=== PATIENT | female | born 2000 | race Caucasian/White ===

== ENCOUNTER → 2018-01-11 | Outpatient (CLI) | payer OTHER ==
[2018-01-11 14:15] LABS: BASO % 0.4 % (0.0-1.0); EOS % 0.4 % (0.0-3.0); HEMATOCRIT 35.4 % (36.0-47.0); HEMOGLOBIN 11.8 g/dl (12.0-15.5); IMMATURE GRANULOCYTE % 0.4 % (0-3.0); LYMPH # 2.2 10^3/uL (1.5-6.5); LYMPH % 20.5 % (24.0-44.0); MEAN CORPUSCULAR HGB CONC 33.3 g/dl (32.0-36.5); MONO # 0.7 10^3/uL (0.0-0.8); MONO % 6.2 % (0.0-5.0); NEUTROPHILS # 7.9 10^3/uL (1.8-7.7); NEUTROPHILS % 72.1 % (36.0-66.0); PLATELET COUNT, AUTOMATED 314 10^3/uL (150-450); RED BLOOD COUNT 4.07 10^6/uL (4.00-5.40); RED CELL DISTRIBUTION WIDTH 12.7 % (11.5-14.5); WHITE BLOOD COUNT 10.9 10^3/uL (4.0-10.0)
[2018-01-11 14:27] LABS: FREE T4 1.12 NG/DL (0.78-1.33); THYROID STIMULATING HORMONE 0.902 uIU/ML (0.463-3.98)
[2018-01-11 14:39] LABS: RUBELLA IgG QUALITATIVE IMMUNE (IMMUNE)
[2018-01-11 14:40] LABS: HBsAg Prenatal NEGATIVE (NEGATIVE)
[2018-01-11 15:08] LABS: HEPATITIS C VIRUS ABY INDEX 0.1 INDEX (<0.8)
[2018-01-11 15:08] LABS: HIV 1&2 SCREEN CENTAUR NEGATIVE (NEGATIVE)
[2018-01-12 14:18] LABS: CHLAMYDIA DNA AMPLIFICATION NEGATIVE (NEGATIVE); GC DNA AMPLIFICATION NEGATIVE (NEGATIVE)
== END ==
LOC: M SMT 11:25
DX: Z34.01 Encounter for supervision of normal first pregnancy, first trimester (principal); Z3A.09 9 weeks gestation of pregnancy
CPT/HCPCS: 84443

== ENCOUNTER → 2018-03-16 | Outpatient (CLI) | payer OTHER ==
--- NOTE | 2018-03-16 17:27 | REP ---
Obstetric ultrasound for anatomy: There are no prior studies. There is a single intrauterine gestation. Fetus is in a breech presentation. There is movement and cardiac activity. heart rate is 144 beats per minute. The placenta is anterior and extends into the lower uterine segment, however there is no placenta previa and the placenta is grade zero. Subjectively the amniotic fluid volume is normal. The cervix measures 2.8 cm length. Gestational age by the ultrasound today is 18 weeks 4 days. The gestational age by LMP is 18 weeks 6 days with an VERO of 10/16/2017. weight is 234 grams (0 pounds, 8 ounces). This is the 26 percentile for 18 weeks 6 days. The following anatomic structures are identified and are unremarkable: Cranium Choroid plexus Cavum septum pellucidum. Face. Lungs Four-chamber heart. Right and left cardiac ventricular outflow tracts. Diaphragm. Stomach. Cord insertion. Three-vessel cord. Kidneys Bladder Upper lower extremities. The following structures are not adequately identified because of position: facial profile. Upper lip. Spine A followup study dedicated to these structures might be considered. Otherwise, there are no anomalies. Electronically Signed by Neal Stearns MD 03/16/2018 05:19 P
== END ==
LOC: M LRY 13:38
PROVIDERS: ATTEND Advanced Practice Midwife
DX: Z34.82 Encounter for supervision of other normal pregnancy, second trimester (principal)

== ENCOUNTER → 2018-03-28 | Outpatient (CLI) | payer OTHER | LOC: M SMT 14:40 | PROVIDERS: ATTEND Obstetrics & Gynecology | DX: Z36.89 Encounter for other specified antenatal screening (principal) ==

== ENCOUNTER → 2018-04-06 | Outpatient (CLI) | payer OTHER ==
--- NOTE | 2018-04-06 14:51 | REP ---
GALLBLADDER ULTRASOUND: 04/06/2018 CLINICAL HISTORY: Low back pain. Second trimester . No comparison study. FINDINGS: Sonographic evaluation of the right upper quadrant shows liver homogeneous echotexture without focal hepatic mass, intrahepatic biliary dilatation, nor perihepatic ascites. Gallbladder is well filled but without stone, sludge, or pericholecystic fluid. Wall thickness is 3 mm, upper range of normal. There is a small echogenic non shadowing focus on the posterior wall of the gallbladder which did not move. This could be a polyp or adherent stone. The common duct is 4 mm and without a filling defect. Pancreas shows no ductal dilatation or other abnormality. No peripancreatic fluid. The right kidney is 11.1 x 4.6 x 6.9 cm. There is no stone or hydronephrosis. An extrarenal pelvis is noted. IMPRESSION: 1. Appears to be a 4 mm polyp or adherent stone on the posterior wall of the gallbladder. Gallbladder wall thickness borderline, but no pericholecystic fluid and no sonographic Chandler sign. 2. Common duct 4 mm and unremarkable. 3. The liver, pancreas, and right kidney without acute finding. Electronically Signed by Denilson Shelby MD 04/06/2018 07:32 P
== END ==
LOC: M RAD 13:26
PROVIDERS: ATTEND Obstetrics & Gynecology
DX: M54.5 Low back pain (principal)

== ENCOUNTER → 2018-04-24 | Outpatient (CLI) | payer OTHER ==
--- NOTE | 2018-04-25 03:32 | REP ---
Clinical: Anatomical evaluation. Comparison: 03/16/2018 . Findings: Examination demonstrates a single live intrauterine in oblique (head towards maternal left) presentation. motion is identified by technologist. Placenta is noted anterior and grade grade 1 without evidence for placenta previa or abruption. Amniotic fluid volume is normal. Cervix measures 3.3 cm in length and appears closed. No evidence for nuchal cord. Gestational age by LMP 24 weeks 3 days with VERO 08/11/2018 . Gestational age by current measurements 23 weeks 6 days with VERO 08/14/2018 . FHR equals 139 beats per minute. Estimated weight 652 grams ( 33rd percentile). Anatomical assessment demonstrates normal structures including cranium, choroid plexus, cerebellum/posterior fossa, nose and lips, lungs, four-chamber heart/ventricular outflow tracts, diaphragm, stomach, cord insertion/three-vessel cord, kidneys/bladder, spine, and extremities. Impression: 1. Single live intrauterine in transverse lie with appropriate interval growth. 2. Limited evaluation of the facial profile. Remainder of the anatomical assessment is complete and normal. Electronically Signed by Ronn Brooks MD 04/25/2018 03:23 A
== END ==
LOC: M LRY 08:26
PROVIDERS: ATTEND Advanced Practice Midwife
DX: O32.2XX0 Maternal care for transverse and oblique lie, not applicable or unspecified (principal); Z36.87 Encounter for antenatal screening for uncertain dates; Z3A.24 24 weeks gestation of pregnancy

== ENCOUNTER → 2018-06-12 | Outpatient (CLI) | payer OTHER ==
[2018-06-12 18:30] LABS: HEMATOCRIT 32.2 % (36.0-47.0); HEMOGLOBIN 10.4 g/dl (12.0-15.5); MEAN CORPUSCULAR HEMOGLOBIN 28.2 pg (27.0-33.0); MEAN CORPUSCULAR HGB CONC 32.3 g/dl (32.0-36.5); MEAN CORPUSCULAR VOLUME 87.3 fl (80.0-96.0); PLATELET COUNT, AUTOMATED 368 10^3/uL (150-450); RED BLOOD COUNT 3.69 10^6/uL (4.00-5.40); WHITE BLOOD COUNT 14.2 10^3/uL (4.0-10.0)
== END ==
LOC: M SMT 15:42
PROVIDERS: ATTEND Advanced Practice Midwife
DX: O44.42 Low lying placenta NOS or without hemorrhage, second trimester (principal); Z3A.00 Weeks of gestation of pregnancy not specified
CPT/HCPCS: 36415; 85027; 86850; 86900; 86901; J2790

== ENCOUNTER 2018-07-24 10:33 | Outpatient (CLI) | payer OTHER ==
[~2018-07-24] VITALS: Ht 165.1 cm; Wt 109.1 kg
[2018-07-24 10:55] VITALS: BP 144/68
[2018-07-24] MEDS ORDERED: TUMS500C PO (10:56)
[2018-07-24] MEDS ORDERED: PRENTAB9 PO (10:56)
[2018-07-24] MEDS ORDERED: TERBUTALINE SULFATE 1 MG/ML VIAL (J3105) As Ordered ONE (11:33)
[2018-07-24] MEDS ORDERED: TERBUTALINE SULFATE 1 MG/ML VIAL (J3105) SC ONE (11:45)
[2018-07-24] MEDS ORDERED: RHOGAM 300 MCG (1500 IU) INJ (J2790) IM SCH (12:30)
--- NOTE | 2018-07-24 12:30 | IPNPDOC ---
Text Note Date of Service The patient was seen on 07/24/18. NOTE ECV note Eusebio is a 18yo with SIUP at 37wk who presented for scheduled ECV for persistent breech presentation at term. course complicated by transfer- in at 35 weeks, O negative MBT (received rhogam 06/13), obesity (starting BMI 32), anemia, and A1GDM. She feels good movement, no LOF, no vaginal bleeding, no regular ctx. Vitals: 1 mild range bp followed by normotensive bp General: WDWN, resting comfortably in bed Abdomen: soft, gravid, NTTP TAUS: SIUP with martín breech presentation - head in maternal LUQ, visually adequate fluid NST: reactive, +accels, -decels, mod monique [place]: rare ctx ECV Note: Dr. Huertas and I performed TAUS to eval position. Patient was given 0.25mg SQ terbutaline for uterine relaxation. Copious gel placed over the abdomen. Using manual pressure, we attempted to manipulate the breech in a forward roll fashion, but there was no forward movement. We then attempted backward roll, but also had no movement. We confirmed with ultrasound that the head had not moved at all. We tried one more attempt in a forward roll, but again no movement whatsoever. We discussed with the patient at that time the unlikelihood of success and the procedure was then terminated. Assessment: unsuccessful ECV, persistent breech presentation Plan: -patient ok to have regular lunch -CEFM for 1 hour -rhogam prior to discharge -strict return precautions -patient will be scheduled for PLTCS at 39wk and will be called with pre-op appt MD IGNACIA Solares Fishbone, I+O Flex BETH I+O Vital Signs Date Time Temp Pulse Resp B/P (MAP) Pulse Ox O2 Delivery O2 Flow Rate FiO2 07/24/18 10:55 99.1 116 18 144/68 (93) Anastasia Santana MD Jul 24, 2018 12:30
[2018-07-31] MEDS ORDERED: QC A650T3 PO (14:33)
== END 2018-07-24 13:05 | disposition home or self-care (01) ==
LOC: M LDO 10:33
PROVIDERS: ATTEND Obstetrics & Gynecology
DX: O32.1XX0 Maternal care for breech presentation, not applicable or unspecified (principal); O36.1930 Maternal care for other isoimmunization, third trimester, not applicable or unspecified; Z3A.37 37 weeks gestation of pregnancy
CPT/HCPCS: 59025; 59412; 76815; 86850; 86870; 86900; 86901; 96372; G0463; J2790; J3105

== ENCOUNTER 2018-08-04 09:22 | Inpatient (IN) | payer OTHER ==
[~2018-08-04] VITALS: Ht 165.1 cm; Wt 102.4 kg
[2018-08-04] VITALS (8 sets, daily range): BP systolic 114–139; BP diastolic 55–82
[~2018-08-04 09:22] MED LIST: PRENTAB9 PO; QC A650T3 PO; TUMS500C PO
[2018-08-04] MEDS ORDERED: LACTATED RINGER'S 1000 ML IV STA (09:42)
[2018-08-04] MEDS ORDERED: LR 1,000 ML IV SCH (09:42)
[2018-08-04] MEDS ORDERED: BICITRA 30ML SOLN UDC PO ONE (10:00)
[2018-08-04 10:21] LABS: HEMATOCRIT 31.5 % (36.0-47.0); HEMOGLOBIN 10.6 g/dl (12.0-15.5); MEAN CORPUSCULAR HGB CONC 33.7 g/dl (32.0-36.5); MEAN CORPUSCULAR VOLUME 86.1 fl (80.0-96.0); PLATELET COUNT, AUTOMATED 285 10^3/uL (150-450); RED BLOOD COUNT 3.66 10^6/uL (4.00-5.40)
[2018-08-04] MEDS ORDERED: OXYTOCIN INJ 10 UNITS/ML VIAL (J2590) As Ordered ONE (10:59)
[2018-08-04] MEDS ORDERED: MORPHINE PRES-FREE INJ 10 MG/10 ML VIAL (J2274) As Ordered ONE (11:00)
--- NOTE | 2018-08-04 11:20 | IPNPDOC ---
Text Note Date of Service The patient was seen on 08/04/18. NOTE Update to H&P Please see scanned admission H&P for complete H&P, but in brief Eusebio is a 18yo with SIUP at 39w0d presenting for gross rupture of membranes with +nitrazine with known breech presentation. She had planned PLTCS scheduled on 08/07 and pre-op visit was already performed where she was counseled/consented for surgery. Consents on file. She had failed ECV at 37wk. She is not feeling painful ctx, so this represents PROM. TAUS done on presentation confirms still breech with head in maternal LUQ. She has normal vital signs. Normal exam. Reactive NST. course complicated by well controlled A1GDM and obesity (starting BMI 32). Will proceed to OR after labs drawn and IV started Anesthesia and nursing team aware 2g IV anceph for prophylaxis Bicitra Last ate at midnight last night Dr. Anastasia Santana MD VS,Flex, I+O VS, Flex, I+O Laboratory Tests 08/04/18 09:54 Red Blood Count 3.66 L, Mean Corpuscular Volume 86.1, Mean Corpuscular Hemoglobin 29.0, Mean Corpuscular Hemoglobin Concent 33.7, Red Cell Distribution Width 15.6 H Anastasia Santana MD Aug 04, 2018 11:01
[2018-08-04] MEDS ORDERED: NALBUPHINE HCL 10 MG/ML AMP (J2300) IV PRN (11:21)
[2018-08-04] MEDS ORDERED: NALOXONE INJ 0.4 MG/1 ML VIAL (J2310) IV PRN ×2 (11:21)
[2018-08-04] MEDS ORDERED: ONDANSETRON 4MG/2ML VIAL (J2405) IV PRN ×3 (11:21→13:45)
[2018-08-04] MEDS ORDERED: diphenhydrAMINE INJ 50MG/ML VIAL (J1200) IV PRN (11:21)
[2018-08-04] MEDS ORDERED: METOCLOPRAMIDE INJ 10MG/2ML VIAL (J2765) IV PRN (11:21)
[2018-08-04] MEDS ORDERED: ONDANSETRON 4MG/2ML VIAL (J2405) As Ordered ONE (11:33)
[2018-08-04] MEDS ORDERED: dexameTHASONE 4 MG/ML 1ML VIAL (J1100) As Ordered ONE (11:33)
[2018-08-04] MEDS ORDERED: KETOROLAC 60 MG/2 ML VIAL (J1885) As Ordered ONE (11:33)
[2018-08-04] MEDS ORDERED: PERCOCET 5MG/325MG TAB PO PRN (13:15)
[2018-08-04] MEDS ORDERED: RHOGAM 300 MCG (1500 IU) INJ (J2790) IM SCH (13:15)
[2018-08-04] MEDS ORDERED: MEASLES,MUMPS,RUBELLA VACCINE INJ (MMR-II) (90707) SC SCH (13:15)
[2018-08-04] MEDS ORDERED: METHYLERGONOVINE MALEATE 0.2 MG/ML VIAL (J2210) IM ONE (13:30)
[2018-08-04] MEDS ORDERED: NORCO, ANEXSIA 5/325MG TABLET (HYDROcodone/ACETAMINOPHEN) PO PRN (13:45)
[2018-08-04] MEDS ORDERED: fentaNYL 100 MCG/2 ML INJECTION (J3010) IV PRN (13:45)
[2018-08-04] MEDS: LR 1,000 ML IV SCH (17:47)
[2018-08-04] MEDS: KETOROLAC 30 MG/ML VIAL (J1885) IV SCH (18:02)
[2018-08-04] MEDS: DOCUSATE SODIUM 100 MG CAP PO SCH (21:00)
[2018-08-05] MEDS: KETOROLAC 30 MG/ML VIAL (J1885) IV SCH ×2 (00:31→05:55)
[2018-08-05] MEDS: LR 1,000 ML IV SCH ×3 (01:12→14:57)
[2018-08-05 02:00] VITALS: BP 113/52
[2018-08-05] MEDS ORDERED: LR 800 ML IV ONE (05:15)
[2018-08-05 06:00] VITALS: BP 115/53
[2018-08-05 07:16] LABS: HEMATOCRIT 21.5 % (36.0-47.0); MEAN CORPUSCULAR HEMOGLOBIN 28.6 pg (27.0-33.0); MEAN CORPUSCULAR HGB CONC 33.5 g/dl (32.0-36.5); MEAN CORPUSCULAR VOLUME 85.3 fl (80.0-96.0); PLATELET COUNT, AUTOMATED 212 10^3/uL (150-450); RED BLOOD COUNT 2.52 10^6/uL (4.00-5.40); WHITE BLOOD COUNT 12.3 10^3/uL (4.0-10.0)
[2018-08-05 07:35] LABS: HEMOGLOBIN 7.2 g/dl (12.0-15.5)
--- NOTE | 2018-08-05 08:49 | IPN ---
DATE: 08/05/2018 This lady is a 18-year-old 1 now para 1 who was admitted at 39 weeks of gestation with spontaneous rupture of membranes, martín breech presentation, in active labor. She was a failed external cephalic version, booked for section on Tuesday. She had a primary section, live male 8 pounds 8 ounces, 3850 grams, scores of nine and nine at 1 and 5 minutes respectively. The rest of the examination is unremarkable. Normocephalic, atraumatic. Neck full range of motion. Pupils equally reactive to light. Distal pulses symmetric. No evidence of deep vein thrombosis (DVT), pulmonary embolism (PE) or superficial phlebitis. Chest is clear bilaterally to the bases. No wheezes or rhonchi. Abdomen soft, uterus 2 below. Lochia is moderate. Four quadrant bowel sounds are noted. Blood pressure is 115/53, respirations 17, pulse 87, temperature is 98.4. Her admitting hemoglobin was 10.6, hematocrit 31.5 and platelets were 285. In summary, we have a 39+ week gestation, martín breech for primary section, live male infant. PLAN: Her medications are dispensed at [facility]. Circumcision today for her . Plan is for discharge tomorrow.
--- NOTE | 2018-08-05 08:53 | IPN ---
DATE OF SERVICE: 08/04/2018 This patient has requested circumcision of their male after discussing risks and benefits of circumcision, the medical and nonmedical indications, penile block and aftercare, expressed understanding of penile block and aftercare and bleeding, signed the consent form. 20-minute discussion. All questions were answered. Await the clearance by the associate manager.
[2018-08-05] MEDS: PRENATAL VITAMINS CHEWABLE TABLET PO SCH (09:00)
[2018-08-05] MEDS: DOCUSATE SODIUM 100 MG CAP PO SCH ×2 (09:00→22:02)
[2018-08-05 09:56] VITALS: BP 115/55
[2018-08-05] MEDS: IBUPROFEN 800 MG TAB PO SCH ×2 (14:57→22:02)
[2018-08-05 18:00] VITALS: BP 130/71
[2018-08-05 22:17] VITALS: BP 115/72
[2018-08-06 02:30] VITALS: BP 115/64
[2018-08-06] MEDS: PERCOCET 5MG/325MG TAB PO PRN (04:49)
[2018-08-06 05:56] VITALS: BP 147/65
[2018-08-06] MEDS: IBUPROFEN 800 MG TAB PO SCH ×3 (06:03→20:59)
--- NOTE | 2018-08-06 07:41 | IPNPDOC ---
Text Note Date of Service The patient was seen on 08/06/18. NOTE POD2 PLTCS States feeling well, pain controlled with prescribed meds. Baby bonding and feeding well. No heavy VB. Lochia slowing. Ambulatory. Tolerating PO without issues. Law out and voiding, UO adequate. VSSAF NAD A&O RRR CTAB LE no C/C/E Ut at U-2, [employer] C/D/I, bandage off CBC yesterday AM stable a/p: Doing well. Cont routine postop care. D/C tomorrow very likely. Sessions VSFlex, I+O VSFlex I+O Vital Signs Date Time Temp Pulse Resp B/P (MAP) Pulse Ox O2 Delivery O2 Flow Rate FiO2 08/06/18 05:56 98.2 106 18 147/65 (92) 08/05/18 22:17 97 I&O- Last 24 Hours up to 6 AM 08/06/18 06:00 Intake Total 2000 ml Output Total 2050 ml Balance -50 ml SESSIONS,ISSAC Sandoval MD Aug 06, 2018 07:41
[2018-08-06] MEDS: PRENATAL VITAMINS CHEWABLE TABLET PO SCH (08:05)
[2018-08-06] MEDS: DOCUSATE SODIUM 100 MG CAP PO SCH ×2 (08:05→21:00)
[2018-08-06 18:00] VITALS: BP 126/66
[2018-08-07] MEDS: PERCOCET 5MG/325MG TAB PO PRN (01:35)
[2018-08-07] MEDS: IBUPROFEN 800 MG TAB PO SCH (05:52)
[2018-08-07 06:00] VITALS: BP 122/62
[2018-08-07] MEDS: DOCUSATE SODIUM 100 MG CAP PO SCH (08:47)
[2018-08-07] MEDS: PRENATAL VITAMINS CHEWABLE TABLET PO SCH (08:48)
--- NOTE | 2018-08-07 09:39 | IPNPDOC ---
Progress Note Date of Service: Aug 07, 2018 Day#: 3 Progress Note POD 3 SUBJECT: Eusebio is a 18yo [id number] s/p uncomplicated PLTCS for breech p resentation with PROM at 39wk, doing well post-op/ day # 3. She has been ambulating, voiding spontaneously without issue and tolerating regular diet. Breast feeding without issue. Reports lochia is minimal. Patient is ambulating well. Pain well controlled with motrin/percocet. No BM yet but passing flatus. No f/c/n/v/CP/SOB. OBJECTIVE: VITAL SIGNS: Within normal limits, afebrile. Alert and oriented times three. Abdomen: Fundus firm at U-2. Soft, appropriately tender to palpation with no rebound/guarding. Pfannensteil incision with steri strips overlying, clean/dry/intact with no erythema/induration/drainage Labs: pre-op H/H: 10.6/31.5 post-op H/H: 7.2/21.5 ASSESSMENT: Eusebio is a 18yo [id number] s/p uncomplicated PLTCS for breech presentation with PROM at 39wk, doing well post-op/ day # 3. Vitals within normal limits, afebrile, hemodynamically stable with no evidence of infection. She feels ready for discharge and meeting all milestones. PLAN: 1. Discharge to home today. 2. Has home meds: percocet, motrin, colace. Discussed how to take meds. 3. Patient has incision check scheduled with me in clinic in 2 weeks 4. Discussed wound care, keep clean and dry, pat dry well after shower, remove steri strips in 1 week 5. Return precautions discussed: fevers, chills, foul smelling lochia, increasing abdominal pain, breast redness/pain or anything else concerning 6. Vaginal rest 6 weeks and no heavy lifting Dr. Anastasia Santana MD VS, I&O, 24H, Fishbone Vital Signs/I&O Vital Signs Date Time Temp Pulse Resp B/P (MAP) Pulse Ox O2 Delivery O2 Flow Rate FiO2 08/07/18 06:00 97.9 102 18 122/62 (82) 08/05/18 22:17 97 Anastasia Santana MD Aug 07, 2018 09:38
--- NOTE | 2018-08-07 09:42 | DS.PDOC ---
Discharge Summary General Date of Admission Aug 04, 2018 at 09:53 Date of Discharge Aug 07, 2018 Attending Physician: Anastasia Santana MD Discharge Summary PROCEDURES PERFORMED DURING STAY: PLTCS ADMITTING DIAGNOSES: 1. Breech presentation with premature rupture of membranes at 39 weeks gestation DISCHARGE DIAGNOSES: 1. Breech presentation with premature rupture of membranes at 39 weeks gestation COMPLICATIONS/CHIEF COMPLAINT: PROM. HISTORY OF PRESENT ILLNESS/HOSPITAL COURSE: Eusebio is a 18yo [id number] s/p uncomplicated PLTCS for breech presentation with PROM at 39wk, doing well post-op/ day # 3. She has had a benign post- op course and at time of discharge her vitals were within normal limits, afebrile, she was hemodynamically stable with no evidence of infection. She feels ready for discharge and is meeting all milestones. DISCHARGE MEDICATIONS: Please see below. ALLERGIES: Please see below. PHYSICAL EXAMINATION ON DISCHARGE: VITAL SIGNS: Within normal limits, afebrile. Alert and oriented times three. Abdomen: Fundus firm at U-2. Soft, appropriately tender to palpation with no rebound/guarding. Pfannensteil incision with steri strips overlying, clean/dry/intact with no erythema/induration/drainage LABORATORY DATA: pre-op H/H: 10.6/31.5 post-op H/H: 7.2/21.5 DIET: regular DISPOSITION: home DISCHARGE PLAN/INSTRUCTIONS: 1. Discharge to home today. 2. Has home meds: percocet, motrin, colace. Discussed how to take meds. 3. Patient has incision check scheduled with me in clinic in 2 week 4. Discussed wound care, keep clean and dry, pat dry well after shower, remove steri strips in 1 week 5. Return precautions discussed: fevers, chills, foul smelling lochia, increasing abdominal pain, breast redness/pain or anything else concerning 6. Vaginal rest 6 weeks and no heavy lifting DISCHARGE CONDITION: Stable TIME SPENT ON DISCHARGE: Greater than [address] Anastasia Santana MD Vital Signs/I&Os Vital Signs Date Time Temp Pulse Resp B/P (MAP) Pulse Ox O2 Delivery O2 Flow Rate FiO2 08/07/18 06:00 97.9 102 18 122/62 (82) 08/05/18 22:17 97 Discharge Medications Scheduled Calcium Carbonate (Tums) 200 Mg Tab.chew, 2 TAB PO QID, (Reported) No.137/Iron/Folic Acd ( Vitamin Tablet) 1 Each Tablet, 1 TAB PO DAILY, (Reported) Scheduled PRN Acetaminophen (Acetaminophen 8 Hour) 650 Mg Tablet.er, 650 MG PO PRN PRN for PAIN, (Reported) Allergies Coded Allergies: No Known Allergies (Unverified , 07/31/18) Anastasia Santana MD Aug 07, 2018 09:42
[2018-08-07] MEDS ORDERED: COLA100C5 PO (09:46)
[2018-08-07] MEDS ORDERED: PERCOCET PO (09:46)
[2018-08-07] MEDS ORDERED: IBUP80TA PO (09:46)
--- NOTE | 2018-08-07 10:20 | RO ---
DATE OF PROCEDURE: 08/04/2018 PREOPERATIVE DIAGNOSIS: Yang intrauterine at 39 weeks 0 days with premature rupture of membranes in the setting of known breech presentation. POSTOPERATIVE DIAGNOSIS: Yang intrauterine at 39 weeks 0 days with premature rupture of membranes in the setting of known breech presentation. OPERATION PERFORMED: Primary low transverse section. SURGEON: Dr. Anastasia Santana. DISPLAY SCREEN FABRICATOR: Dr. Britton Begum. ANESTHESIA: Spinal. MATERIALS FORWARDED TO LAB FOR EXAMINATION: None. DESCRIPTION OF FINDINGS: Male in martín breech presentation. Apgars were 9 and 9, weight 8 pounds 8 ounces or 3850 grams, normal appearing uterus, fallopian tubes and ovaries. INFECTION CLASSIFICATION: II ESTIMATED BLOOD LOSS: 500 mL IV fluids IV FLUIDS: 1400 mL lactated Ringer's. URINE OUTPUT: 100 mL of clear yellow urine. INDICATIONS FOR OPERATION: Eusebio is a 18-year-old G1, now P1-0-0-1, who presented to labor and delivery with gross rupture of membranes at 39 weeks and 0 days having a diagnosis of premature rupture of membranes (PROM). She was scheduled for planned section 3 days later for a known breech presentation, having failed external cephalic version (ECV) procedure previously. However, upon presenting to labor and delivery, she was confirmed to have gross rupture of membranes, Nitrazine positive and on ultrasound was shown to still have breech presentation. was complicated by A1 GDM as well as obesity, starting body mass index (BMI) 32. DESCRIPTION OF OPERATION: After obtaining informed consent, Eusebio was taken to the operating room. She received spinal anesthesia. Law catheter and bilateral sequential compression devices were placed. She was prepped and draped in normal sterile fashion in dorsal supine position with a left lateral tilt. She received 2 grams of IV Ancef prophylactically. Time-out was performed to confirm patient name, date of procedure and indication; team was in agreement. Spinal anesthesia was found to be adequate using an Allis clamp. Pfannenstiel skin incision was made with a scalpel, carried through to the underlying layer of fascia. Fascia was incised in the midline and the incision was extended laterally with Garcia scissors. Superior and inferior aspects of fascial incision were grasped with Jacqueline clamps, elevated and the underlying rectus muscles were dissected off bluntly and sharply. Peritoneum was entered digitally and the rectus muscles were in the midline. Peritoneal incision was extended superiorly and inferiorly with good visualization of the bladder. Bladder blade was inserted and the vesicouterine peritoneum was identified, grasped with pickups and entered sharply with Metzenbaum scissors. The incision was extended laterally and the bladder flap was created digitally. Bladder blade was reinserted and the lower uterine segment was scored in a transverse fashion with a scalpel. Uterus was entered bluntly and the incision was extended with traction. Bladder blade was removed and with fundal pressure, the 's pelvis was elevated to the level of the incision. The left followed by right leg delivered using Pinard maneuver. Left followed by right arm delivered by L[place] maneuvers. Head CT head was delivered atraumatically using the [id number]. Nose and mouth were suctioned with bulb suction. Cord was clamped times two and cut. was handed off to the awaiting process control technician. Infant was vigorous at with spontaneous cry. Placenta was then removed with traction on the umbilical cord and uterine massage and uterus was exteriorized and cleared of all clot and debris. Uterine incision was repaired with 0 Vicryl suture in a running locking fashion. Second layer of all Monocryl was used to close the hysterotomy incision in an imbricating fashion. Uterine incision was inspected and hemostasis was noted. Posterior cul-de-sac was irrigated in the uterus was then returned the abdomen. Gutters were cleared of all clots. The peritoneum was closed using #3-0 Vicryl suture in a running fashion. Fascia was reapproximated with 0 Vicryl suture in a running fashion. Maddie fascia was reapproximated using #3-0 Vicryl suture in a running fashion. Skin edges were reapproximated using three inverted interrupted stitches using #3-0 Vicryl suture followed by a running subcuticular stitch using #4-0 Monocryl. Incision was cleaned using wet lap, dried with a dry lap. Steri-Strips were applied in usual fashion. Two strips of Telfa were layered on top of the Steri-Strips followed by a dry sterile towel. Surgical drapes were removed. Sterile towel was removed and a pressure dressing was applied over the entire surgical incision. Vagina was cleared of all blood clot without active bleeding noted. Fundus was firm at U -2 cm. I had anesthesia give a dose of 0.2 mg IM Methergine for prophylaxis against any future bleeding. All counts were correct times two. Procedure was without complications and the patient tolerated the procedure well. She was taken to recovery room on labor and delivery in stable condition.
== END 2018-08-07 12:30 | disposition home or self-care (01) | DRG 773 ==
LOC: M LDO 09:22 → M LDI 09:53 → M OBS 14:22
PROVIDERS: ADMIT Obstetrics & Gynecology; ATTEND Obstetrics & Gynecology
PROC: 10D00Z1 Extraction of Products of Conception, Low, Open Approach (ICD-10-PCS; principal; 2018-08-04 13:57)
DX: O32.1XX0 Maternal care for breech presentation, not applicable or unspecified (principal); Z37.0 Single live birth; Z3A.39 39 weeks gestation of pregnancy; O42.02 Full-term premature rupture of membranes, onset of labor within 24 hours of rupture; E66.9 Obesity, unspecified; O99.214 Obesity complicating childbirth; O24.429 Gestational diabetes mellitus in childbirth, unspecified control